=== PATIENT | male | born 2000 | race African-American/Black ===

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

== ENCOUNTER 2020-05-17 12:29 | Emergency (ER) | payer MEDICAID ==
[2020-05-17 12:48] VITALS: BP 144/90
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
== END 2020-05-17 13:04 | disposition home or self-care (01) ==
LOC: ED 12:29
DX: R46.89 Other symptoms and signs involving appearance and behavior (principal); E10.9 Type 1 diabetes mellitus without complications
CPT/HCPCS: 99281; 99282

== ENCOUNTER 2021-11-17 13:19 | Outpatient (CLI) | payer MEDICAID | END 2021-11-17 13:20 | disposition EMS.NT | LOC: EMS 13:19 | DX: S91.112A Laceration without foreign body of left great toe without damage to nail, initial encounter (principal); W25.XXXA Contact with sharp glass, initial encounter; Y92.009 Unspecified place in unspecified non-institutional (private) residence as the place of occurrence of the external cause ==

== ENCOUNTER 2021-11-17 14:05 | Emergency (ER) | payer MEDICAID ==
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
[2021-11-17] MEDS ORDERED: ACETAMINOPHEN 325 MG TABLET PO STA (16:08)
[2021-11-17 16:50] VITALS: BP 137/89
== END 2021-11-17 16:45 | disposition home or self-care (01) ==
LOC: ED 14:05
DX: S91.112A Laceration without foreign body of left great toe without damage to nail, initial encounter (principal); S91.115A Laceration without foreign body of left lesser toe(s) without damage to nail, initial encounter; W25.XXXA Contact with sharp glass, initial encounter; Y93.89 Activity, other specified
CPT/HCPCS: 12001; 99282; A9270

== ENCOUNTER 2021-11-26 07:29 | Emergency (ER) | payer MEDICAID ==
--- NOTE | 2021-11-26 07:33 | ED Physician Documentation ---
PD HPI WOUND RECHECK - Stated complaint Stated Complaint: SUTURE REMOVAL - Histroy obtained from History obtained from: Patient - History of Present Illness Location: Right Foot Timing - onset: How many days ago (9) Associated symptoms: Pain. No: Fever, Redness, Swelling, Drainage Similar symptoms before: Diagnosis (laceration) Recently seen: Emergency Dept - Additional information Additional information: 21-year-old type I diabetic male has lacerated 2 toes on his right foot and had sutures placed 9 days ago. He denies any specific problem associated with the laceration there is no swelling or drainage he does have pain and he is using crutches to walk. He states that he has some numbness to the big toe that was present at the time of the laceration and it is only starting to regain some feeling. He states this is the area that is the most bothered. Review of Systems Constitutional: denies: Fever Respiratory: denies: Cough GI: denies: Vomiting Skin: reports: Laceration (s) Musculoskeletal: reports: Extremity pain, Pain with weight bearing. denies: Neck pain, Back pain PD PAST MEDICAL HISTORY - Past Medical History Cardiovascular: None Respiratory: Asthma Endocrine/Autoimmune: Type 1 diabetes GI: None : None HEENT: None Psych: None Musculoskeletal: None Derm: None - Past Surgical History Past Surgical History: No - Present Medications Home Medications: Ambulatory Orders Medication Instructions Recorded Confirmed Insulin Glargine [Lantus] 25 units SUBQ QPM 08/18/16 11/26/21 Insulin Lispro [Humalog] 25 units SUBQ QPM 08/18/16 11/26/21 - Allergies Allergies/Adverse Reactions: Allergies Allergy/AdvReac Type Severity Reaction Status Date / Time prednisone Allergy Respiratory Verified 11/26/21 07:33 - Social History Does the pt smoke?: No Smoking Status: Never smoker Does the pt drink ETOH?: Yes Does the pt have substance abuse?: No - Immunizations Immunizations are current?: Yes - POLST Patient has POLST: No PD ED PE NORMAL - Vitals Vital signs reviewed: Yes (Tachycardic and hypertensive) - General General: Alert and oriented X 3, No acute distress, Well developed/nourished - HEENT HEENT: Atraumatic, PERRL, EOMI - Respiratory Respiratory: No respiratory distress - Derm Derm: Normal color, Warm and dry, No rash - Extremities Extremities: Other (To the plantar surface of the right foot the right great toe and second toe have sutures placed. There is no surrounding erythema or swelling the area is sensitive.) - Neuro Neuro: Alert and oriented X 3, stamping operator 2-12 intact, No motor deficit, No sensory deficit, Normal speech Eye Opening: Spontaneous Motor: Obeys Commands Verbal: Oriented GCS Score: 15 - Psych Psych: Normal mood, Normal affect Results - Vitals Vitals: Vital Signs - 24 hr 11/26/21 07:33 Temperature 36.4 C L Heart Rate 108 H Respiratory 99 H Rate Blood Pressure 135/80 H Oxygen O2 Source Room air - Labs Labs: Laboratory Tests 11/26/21 07:56 POC Whole Bld Glucose 233 H Procedures - Suture/staple Removal (location) right foot Suture/staple removal: # sutures (9), Other (significant pain with manipulation of sutures caused the patient to become diaphoretic.) PD MEDICAL DECISION MAKING - ED course Complexity details: considered differential, d/w patient, d/w family ED course: 21-year-old type I diabetic male presents emerged part for suture removal. He presents to the emergency department on crutches and is still having some difficulty with bearing weight. Sutures removed with significant mount of pain for removal of each suture. I found this odd and in that the patient even developed diaphoresis associated with this. I am concerned that he may be developing a complex regional pain syndrome. I discussed this finding with the patient and are hoping that with removal of sutures inflammation resolves. I will refer the patient to primary care. He does not currently have a primaryBecause of the diaphoresis we did check the blood glucose it was over 200. Departure - Departure Disposition: 01 Home, Self Care Clinical Impression: Encounter for removal of sutures Condition: Stable Instructions: ED Sutr Check No Infec Follow-Up: [facility] [Provider Group] Forms: Activity restrictions
[2021-11-26 08:30] VITALS: BP 130/80
== END 2021-11-26 08:31 | disposition home or self-care (01) ==
LOC: ED 07:29
DX: S91.114D Laceration without foreign body of right lesser toe(s) without damage to nail, subsequent encounter (principal); X58.XXXD Exposure to other specified factors, subsequent encounter; E10.9 Type 1 diabetes mellitus without complications; Z79.4 Long term (current) use of insulin
CPT/HCPCS: 99281

== ENCOUNTER 2022-01-20 12:44 | Outpatient (CLI) | payer MEDICAID | END 2022-01-20 12:45 | disposition critical access hospital (66) | LOC: EMS 12:44 | DX: E10.65 Type 1 diabetes mellitus with hyperglycemia (principal) | CPT/HCPCS: A0425; A0427; A0999 ==

== ENCOUNTER 2022-01-20 13:14 | Inpatient (IN) | payer MEDICAID ==
[2022-01-20] MEDS ORDERED: SODIUM CHLORIDE 0.9% 1,000 ML IV STA (13:16)
[2022-01-20] MEDS ORDERED: ONDANSETRON 4 MG/2 ML VIAL IVP STA (13:23)
--- NOTE | 2022-01-20 13:25 | ED Physician Documentation ---
History of Present Illness - Stated complaint Stated Complaint: DIABETIC ISSUE - Additonal information Additional information: 21-year-old male who is a type I diabetic comes to the emergency department for concerns of hyperglycemia. Recently he has been in between primary care doctors and has been unable to get a refill of his Lantus so he has not taken it for a few weeks. In addition to this he has been rationing his Humalog. Typically he would take 21 units of Lantus every morning and 15 units of Humalog with carb counting at lunchtime as well as insulin sliding scale. 9 no fever some nausea but no vomiting. No diarrhea. No chest pain and shortness of air. For EMS his blood glucose was 498. Review of Systems Constitutional: denies: Fever, Chills Eyes: reports: Reviewed and negative Nose: reports: Reviewed and negative Throat: reports: Reviewed and negative Cardiac: reports: Reviewed and negative Respiratory: reports: Reviewed and negative GI: reports: Nausea. denies: Vomiting, Diarrhea : reports: Reviewed and negative Skin: reports: Reviewed and negative Musculoskeletal: reports: Reviewed and negative PD PAST MEDICAL HISTORY - Past Medical History Cardiovascular: None Respiratory: Asthma Endocrine/Autoimmune: Type 1 diabetes GI: None : None HEENT: None Psych: None Musculoskeletal: None Derm: None - Past Surgical History Past Surgical History: No - Present Medications Home Medications: Ambulatory Orders Medication Instructions Recorded Confirmed Insulin Glargine [Lantus] 25 units SUBQ QPM 08/18/16 11/26/21 Insulin Lispro [Humalog] 25 units SUBQ QPM 08/18/16 11/26/21 Insulin Glargine [Lantus Solostar] 21 unit SQ DAILY #1 pe 01/20/22 Insulin Lispro [Humalog Kwikpen 15 unit SUBQ BID #1 each 01/20/22 U-100] - Allergies Allergies/Adverse Reactions: Allergies Allergy/AdvReac Type Severity Reaction Status Date / Time prednisone Allergy Respiratory Verified 11/26/21 07:33 - Social History Does the pt smoke?: No Smoking Status: Never smoker Does the pt drink ETOH?: Yes Does the pt have substance abuse?: No - Immunizations Immunizations are current?: Yes - POLST Patient has POLST: No PD ED PE NORMAL - General General: Alert and oriented X 3, No acute distress, Well developed/nourished - HEENT HEENT: Atraumatic, PERRL, EOMI, Moist mucous membranes - Neck Neck: Supple, no meningeal sign, No adenopathy - Cardiac Cardiac: No murmur, No gallop - Respiratory Respiratory: No respiratory distress, Clear bilaterally - Abdomen Abdomen: Normal bowel sounds, Soft, Non tender - Back Back: No CVA TTP, No spinal TTP - Derm Derm: Normal color, Warm and dry, No rash - Extremities Extremities: No deformity, No tenderness to palpate, Normal ROM s pain - Neuro Neuro: Alert and oriented X 3, appeals reviewer veteran 2-12 intact Eye Opening: Spontaneous Motor: Obeys Commands Verbal: Oriented GCS Score: 15 Results - Vitals Vitals: Vital Signs - 24 hr 01/20/22 01/20/22 01/20/22 13:10 13:26 14:36 Temperature 37.1 C Heart Rate 110 H 114 H 122 H Respiratory 19 28 H 26 H Rate Blood Pressure 115/60 116/63 134/81 H O2 Saturation 100 100 100 01/20/22 01/20/22 01/20/22 15:10 17:29 18:19 Temperature Heart Rate 111 H 109 H 105 H Respiratory 30 H 12 23 Rate Blood Pressure 120/60 123/87 H 114/74 O2 Saturation 100 96 100 01/20/22 01/20/22 01/20/22 18:41 19:15 19:38 Temperature Heart Rate 107 H 117 H 114 H Respiratory 23 16 25 H Rate Blood Pressure 110/76 111/67 107/77 O2 Saturation 100 100 100 01/20/22 21:51 Temperature Heart Rate 100 Respiratory 23 Rate Blood Pressure 100/72 O2 Saturation 100 Oxygen O2 Source Room air - Labs Labs: Laboratory Tests 01/20/22 01/20/22 01/20/22 13:37 13:37 14:18 WBC 9.2 RBC 5.07 Hgb 14.9 Hct 47.1 MCV 92.9 MCH 29.4 MCHC 31.6 L RDW 13.2 Plt Count 335 MPV 10.0 Neut # (Auto) 7.1 H Lymph # (Auto) 1.6 [place] # (Auto) 0.3 Eos # (Auto) 0.1 Baso # (Auto) 0.1 Absolute Nucleated RBC 0.00 Nucleated RBC % 0.0 VBG pH VBG pCO2 VBG pO2 VBG HCO3 VBG Total CO2 VBG O2 Saturation VBG Base Excess Sodium 137 Potassium 4.9 Chloride 99 L Carbon Dioxide 8 L* Anion Gap 30.0 H BUN 23 H Creatinine 1.5 H Estimated GFR (MDRD) 71 L Glucose 593 H* Lactic Acid 2.1 Calcium 9.3 Total Bilirubin 2.1 H AST 25 ALT 27 Alkaline Phosphatase 106 Total Protein 7.6 Albumin 4.2 Globulin 3.4 Albumin/Globulin Ratio 1.2 Lipase 20 L Urine Color Urine Clarity Urine pH Ur Specific [employer] Urine Protein Urine Glucose (UA) Urine Ketones Urine Occult Blood Urine Nitrite Urine Bilirubin Urine Urobilinogen Ur Leukocyte Esterase Ur Microscopic Review Urine Culture Comments Serum Ketones LARGE H SARS-CoV-2 (PCR) 01/20/22 01/20/22 01/20/22 14:18 14:28 15:15 WBC RBC Hgb Hct MCV MCH MCHC RDW Plt Count MPV Neut # (Auto) Lymph # (Auto) [place] # (Auto) Eos # (Auto) Baso # (Auto) Absolute Nucleated RBC Nucleated RBC % VBG pH 7.107 L VBG pCO2 19.0 L VBG pO2 71.1 H VBG HCO3 5.9 L VBG Total CO2 6.4 L VBG O2 Saturation 90.1 H VBG Base Excess -21.7 L Sodium Potassium Chloride Carbon Dioxide Anion Gap BUN Creatinine Estimated GFR (MDRD) Glucose Lactic Acid Calcium Total Bilirubin AST ALT Alkaline Phosphatase Total Protein Albumin Globulin Albumin/Globulin Ratio Lipase Urine Color YELLOW Urine Clarity CLEAR Urine pH 5.5 Ur Specific [employer] 1.020 Urine Protein NEGATIVE Urine Glucose (UA) >=1000 H Urine Ketones >=80 H Urine Occult Blood NEGATIVE Urine Nitrite NEGATIVE Urine Bilirubin NEGATIVE Urine Urobilinogen 0.2 (NORMAL) Ur Leukocyte Esterase NEGATIVE Ur Microscopic Review NOT INDICATED Urine Culture Comments NOT INDICATED Serum Ketones SARS-CoV-2 (PCR) NOT DETECTED 01/20/22 01/20/22 18:11 20:48 WBC RBC Hgb Hct MCV MCH MCHC RDW Plt Count MPV Neut # (Auto) Lymph # (Auto) [place] # (Auto) Eos # (Auto) Baso # (Auto) Absolute Nucleated RBC Nucleated RBC % VBG pH VBG pCO2 VBG pO2 VBG HCO3 VBG Total CO2 VBG O2 Saturation VBG Base Excess Sodium 142 136 Potassium 4.5 4.2 Chloride 109 106 Carbon Dioxide 11 L* 13 L Anion Gap 22.0 H 17.0 H BUN 19 15 Creatinine 1.2 1.1 Estimated GFR (MDRD) 92 101 Glucose 211 H 340 H Lactic Acid Calcium 8.6 8.3 L Total Bilirubin AST ALT Alkaline Phosphatase Total Protein Albumin Globulin Albumin/Globulin Ratio Lipase Urine Color Urine Clarity Urine pH Ur Specific [employer] Urine Protein Urine Glucose (UA) Urine Ketones Urine Occult Blood Urine Nitrite Urine Bilirubin Urine Urobilinogen Ur Leukocyte Esterase Ur Microscopic Review Urine Culture Comments Serum Ketones SARS-CoV-2 (PCR) PD MEDICAL DECISION MAKING - ED course Complexity details: reviewed results, re-evaluated patient, d/w patient ED course: 21-year-old male who is a type I diabetic presents the emergency department for evaluation of nausea and hyperglycemia. He has not taken his Lantus for about 3 weeks and has been rationing his Humalog as he is in between primary care providers. On presentation he has a blood glucose greater than 500. His CO2 is 8 and large ketones in the blood as well as an anion gap of 30. he is also quite acidotic with a base deficit of -21 and a pH 7.1. This is consistent with DKA. He is tachycardic but normotensive. He was initially started on crystalloids pending labs. Seeing that his potassium is normal we have instituted insulin gtt. I have spoken with Dr. Lagos Who will write admission orders for the patient as soon as an ICU bed is available. It may be a number of hours therefore he will remain in the emergency department. 1800: Notified by the daytime hospitalist that the anticipated ICU bed will no longer be available. The hospitalist has agreed to write a consult note but in order to further manage his care. I was notified that blood glucose now 197. D51/2 NS infusion ordered. Patient has notified myself and the hospitalist because of family care issues he is not likely to remain in the hospital past 9 PM. Repeat BMP is pending. Assuming his gap closes we may be able to discharge him, though it may be AGAINST MEDICAL ADVICE. 2015: On repeat evaluation the patient remains a Glasc[place] of 15. He continues to have mild tachycardia. A repeat BMP completed around the 1600-hour showed that he still had an elevated gap which had not closed. I discussed with the patient the lability of his blood glucose and the fact that he remains in DKA. He is adamant that he will be discharged home as he needs to care for his mom. We discussed that the risk of leaving before the gap is fully closed and without incomplete treatment of DKA could risk he understands this. He is requesting that we give him a dose of Lantus tonight and I will send a prescription for his medications to the pharmacy. He will continue to try and obtain a primary care provider. Emergent return precautions were discussed. 2030: I am notified that the patient now no longer wants to leave AMA. I have asked nursing staff to resume his insulin and dextrose infusion. Repeat BMP is pending. We will request every 30 minutes blood glucose if the nursing staff can accommodate until stabilized. I have discussed with Dr. Henry or hospitalist. If an ICU bed opens up overnight he will be admitted there. 2229. Blood glucose 261. Remain on insulin gtt, but dextrose infusion stopped. Most recent BMP contiues to show an elevated anion gap, though improving. still awaiting an ICU bed. Pt will be signed out to my night time colleague Dr. Burnham to f/u on any overnight event and labs. Departure - Departure Clinical Impression: DKA, type 1 Qualifiers: Diabetes mellitus complication detail: without coma Qualified Code(s): E10.10 - Type 1 diabetes mellitus with ketoacidosis without coma Condition: Stable Record reviewed to determine appropriate education?: Yes Prescriptions: Insulin Lispro [Humalog Kwikpen U-100] 15 unit SUBQ BID #1 each Insulin Glargine [Lantus Solostar] 21 unit SQ DAILY #1 pe
[2022-01-20 13:43] LABS: BASOPHILS # (AUTO) 0.1 10^3/uL (0.0-0.1); BASOPHILS % (AUTO) 0.7 %; EOSINOPHILS # (AUTO) 0.1 10^3/uL (0.0-0.7); EOSINOPHILS % (AUTO) 0.5 %; HCT - HEMATOCRIT 47.1 % (42.0-52.0); HGB - HEMOGLOBIN 14.9 g/dL (14.0-18.0); LYMPHOCYTES # (AUTO) 1.6 10^3/uL (1.5-3.5); LYMPHOCYTES % (AUTO) 17.3 %; MEAN CORPUSCULAR HEMOGLOBIN 29.4 pg (27.0-31.0); MEAN CORPUSCULAR HGB CONC 31.6 g/dL (32.0-36.0); MEAN CORPUSCULAR VOLUME 92.9 fL (80.0-94.0); MONOCYTES # (AUTO) 0.3 10^3/uL (0.0-1.0); MONOCYTES % (AUTO) 3.7 %; NEUTROPHILS # (AUTO) 7.1 10^3/uL (1.5-6.6); NEUTROPHILS % (AUTO) 77.6 %; PLT - PLATELET COUNT 335 10^3/uL (130-450); RED BLOOD COUNT 5.07 10^6/uL (4.70-6.10); RED CELL DISTRIBUTION WIDTH 13.2 % (12.0-15.0); WHITE BLOOD COUNT 9.2 x10^3/uL (4.8-10.8)
[2022-01-20 13:49] LABS: KETONES, SERUM (ACETEST) LARGE (NEGATIVE)
[2022-01-20 13:56] LABS: ALBUMIN 4.2 g/dL (3.2-5.5); ALBUMIN/GLOBULIN RATIO 1.2 (1.0-2.2); ALKALINE PHOSPHATASE 106 IU/L (42-121); ALT ALANINE AMINOTRANSFERASE 27 IU/L (10-60); AST ASPARTATE AMINOTRANSFERASE 25 IU/L (10-42); BILIRUBIN,TOTAL 2.1 mg/dL (0.2-1.0); BUN - BLOOD UREA NITROGEN 23 mg/dL (6-20); CALCIUM 9.3 mg/dL (8.5-10.3); CHLORIDE 99 mmol/L (101-111); CREATININE 1.5 mg/dL (0.6-1.2); GFR - MDRD 71 (>89); LIPASE 20 U/L (22-51); POTASSIUM 4.9 mmol/L (3.5-5.0); SODIUM 137 mmol/L (135-145); TOTAL PROTEIN 7.6 g/dL (6.7-8.2)
[2022-01-20 13:57] LABS: CARBON DIOXIDE - CO2 8 mmol/L (21-32); GLUCOSE 593 mg/dL (70-100)
[2022-01-20] MEDS ORDERED: INSULIN REGULAR HUMAN 100 UNIT/1 ML 10 ML MDV IVP STA ×2 (14:03→14:37)
[2022-01-20] MEDS ORDERED: INSULIN REGULAR HUMAN 100 UNIT in SODIUM CHLORIDE 0.9% 100ML 99 ML IV STA (14:03)
[2022-01-20] MEDS: SODIUM CHLORIDE 0.9% 1,000 ML IV SCH ×3 (14:15→17:12)
[2022-01-20 14:28] LABS: VBG BASE EXCESS -21.7 mmol/L (-2 - +2); VBG HCO3 5.9 mmol/L (23-28); VBG OXYGEN SATURATION 90.1 % (60-80); VBG PH 7.107 (7.31-7.41); VBG PO2 71.1 mmHg (25-47); VBG TOTAL CO2 6.4 mmol/L (24-29)
[2022-01-20 14:46] LABS: BILIRUBIN,URINE NEGATIVE (NEGATIVE); GLUCOSE, URINE (UA) >=1000 mg/dL (NEGATIVE); KETONES,URINE (UA) >=80 mg/dL (NEGATIVE); LEUKOCYTE ESTERASE, URINE NEGATIVE (NEGATIVE); NITRITE,URINE NEGATIVE (NEGATIVE); OCCULT BLOOD,URINE NEGATIVE (NEGATIVE); PH,URINE 5.5 PH (5.0-7.5); PROTEIN,URINE NEGATIVE (NEGATIVE); UROBILINOGEN,URINE 0.2 (NORMAL) E.U./dL (NORMAL)
[2022-01-20 14:51] LABS: CLARITY,URINE CLEAR (CLEAR)
[2022-01-20 18:33] LABS: CALCIUM 8.6 mg/dL (8.5-10.3); CREATININE 1.2 mg/dL (0.6-1.2); POTASSIUM 4.5 mmol/L (3.5-5.0)
[2022-01-20] MEDS ORDERED: DEXTROSE 5%-0.9% NACL 1,000 ML IV STA (18:40)
--- NOTE | 2022-01-20 19:21 | CONSULTATION NOTE ---
History - Past Medical History Cardiovascular: reports: None Respiratory: reports: Asthma Endocrine/Autoimmune: reports: Type 1 diabetes GI: reports: None : reports: None HEENT: reports: None Psych: reports: None Musculoskeletal: reports: None Derm: reports: None MRSA Hx?: No - POLST Patient has POLST: No Meds/Allgy - Home Medications Home Medications: Ambulatory Orders Medication Instructions Recorded Confirmed Insulin Glargine [Lantus] 25 units SUBQ QPM 08/18/16 11/26/21 Insulin Lispro [Humalog] 25 units SUBQ QPM 08/18/16 11/26/21 - Allergies Allergies/Adverse Reactions: Allergies Allergy/AdvReac Type Severity Reaction Status Date / Time prednisone Allergy Respiratory Verified 11/26/21 07:33 Exam - Vital Signs Vital Signs: Vital Signs x48h Temp Pulse Resp BP Pulse Ox 01/20/22 19:15 117 H 16 111/67 100 01/20/22 18:41 107 H 23 110/76 100 01/20/22 18:19 105 H 23 114/74 100 01/20/22 17:29 109 H 12 123/87 H 96 01/20/22 15:10 111 H 30 H 120/60 100 01/20/22 14:36 122 H 26 H 134/81 H 100 01/20/22 13:26 114 H 28 H 116/63 100 01/20/22 13:10 37.1 C 110 H 19 115/60 100 Conclusion/Plan - Lab Results Fish Bones: 01/20/22 13:37 01/20/22 18:11
[2022-01-20] MEDS ORDERED: INSULIN GLARGINE 300 UNIT/3 ML PEN SUBQ STA (20:20)
[2022-01-20 21:12] LABS: CALCIUM 8.3 mg/dL (8.5-10.3); CREATININE 1.1 mg/dL (0.6-1.2); POTASSIUM 4.2 mmol/L (3.5-5.0)
[2022-01-21 00:08] LABS: CALCIUM 8.8 mg/dL (8.5-10.3); POTASSIUM 4.1 mmol/L (3.5-5.0)
[2022-01-21] MEDS ORDERED: ONDANSETRON 4 MG/2 ML VIAL IVP PRN (00:26)
[2022-01-21] MEDS ORDERED: SODIUM CHLORIDE FLUSH 0.9% 10 ML SYRINGE IVP PRN (00:26)
[2022-01-21] MEDS ORDERED: ACETAMINOPHEN 325 MG TABLET PO PRN (00:26)
[2022-01-21] MEDS ORDERED: PROCHLORPERAZINE 10 MG/2 ML VIAL IVP PRN (00:26)
--- NOTE | 2022-01-21 00:33 | HISTORY & PHYSICAL EXAMINATION ---
Chief Complaint - Chief Complaint Chief Complaint: Hyperglycemia from rationing Insulin History of Present Illness - Admitted From Admitted From:: ED - History Obtained From History obtained from: ED provider and the patient - History of Present Illness HPI Comment/Other: This is a 21-year-old black male with a history of type 1 diabetes. He is between providers and started rationing his insulin to last him before having his appointment with a new PCP, who could reorder his insulin. His glucose checks have become hyperglycemic. He started to get weakness and nausea and called an ambulance. His last glucose was 498. In the ED he was found to have DKA with Large serum ketones, elevated anion gap and serum pH of 7.1. He was started on DKA protocol in the emergency room department, since we had no open ICU beds. The patient is being admitted to the ICU for DKA management. History - Past Medical History Cardiovascular: reports: None Respiratory: reports: Asthma Endocrine/Autoimmune: reports: Type 1 diabetes (2 prior episodes of DKA, none in the past 2 years.) GI: reports: None : reports: None HEENT: reports: None Psych: reports: None Musculoskeletal: reports: None Derm: reports: None MRSA Hx?: No - Family & Social History Family History: Mother: Alive and Well Family History Comment/Other: Diabetes does not run in the family. No illnesses run in the family. He has an older brother who is deployed overseas currently. 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 He smokes up to 1/2 pack/day. He drinks up to 2 beers occasionally, not daily. - Substance History Use: Uses substance without health or social issues: NONE - POLST Patient has POLST: No Meds/Allgy - Home Medications Home Medications: Ambulatory Orders Medication Instructions Recorded Confirmed Insulin Glargine [Lantus] 25 units SUBQ QPM 08/18/16 11/26/21 Insulin Lispro [Humalog] 25 units SUBQ QPM 08/18/16 11/26/21 Insulin Glargine [Lantus Solostar] 21 unit SQ DAILY #1 pe 01/20/22 Insulin Lispro [Humalog Kwikpen 15 unit SUBQ BID #1 each 01/20/22 U-100] - Allergies Allergies/Adverse Reactions: Allergies Allergy/AdvReac Type Severity Reaction Status Date / Time prednisone Allergy Respiratory Verified 11/26/21 07:33 Review of Systems - Constitutional Constitutional: reports: Poor appetite - Gastrointestinal Gastrointestinal: reports: Nausea, Vomiting - All Other Systems All Other Systems: reports: Reviewed and negative Exam - Vital Signs Vital Signs: Vital Signs x48h Pulse Resp BP Pulse Ox 01/21/22 00:10 98 19 120/84 H 100 01/20/22 23:00 97 15 117/77 100 01/20/22 21:51 100 23 100/72 100 01/20/22 19:38 114 H 25 H 107/77 100 01/20/22 19:15 117 H 16 111/67 100 01/20/22 18:41 107 H 23 110/76 100 01/20/22 18:19 105 H 23 114/74 100 01/20/22 17:29 109 H 12 123/87 H 96 - Physical Exam General Appearance: positive: Mild distress Eyes Bilateral: positive: Normal inspection, EOMI ENT: positive: Dry mucous membranes Neck: positive: Nml inspection, No JVD Respiratory: positive: No respiratory distress, Breath sounds nml Cardiovascular: positive: Regular rate & rhythm, No murmur Abdomen: positive: Non-tender, No distention (diminished bowel sounds) Skin: positive: Warm, Dry Extremities: positive: Non-tender, No pedal edema Neurologic/Psychiatric: positive: Oriented x3 (non-focal) Conclusion/Plan - Problem List (1) DKA, type 1 Conclusion/Plan: The etiology appears to be (sadly) from having to ration his insulin doses to last him until he has a PCP appointment who can represcribe him insulin. Will place him on a DKA protocol in the ICU, on an insulin drip, with close electrolyte and glucose monitoring, on IV fluids containing D5 (since his serum glucoses have reached under 200), follow serum ketones. Continue the IV insulin drip until he clears his serum ketones completely; They have decreased from large serum ketones down to small serum ketones. Replace electrolytes (like K and PO4) as the serum glucose decreases Give iv anti-emetics if needed. Advance him to a diabetic diet, as tolerated. Check A1c with morning labs Will order nutrition consult for diabetic teaching. Will request social work to assist in getting him an [facility] appointment with the PCP. Qualifiers: Diabetes mellitus complication detail: without coma Qualified Code(s): E10.10 - Type 1 diabetes mellitus with ketoacidosis without coma - Lab Results Fish Bones: 01/21/22 04:10 01/21/22 04:10 - Diagnostic Imaging Results Diagnostic Imaging Results: positive: Final report reviewed - Other Other Results/Comments: DVT prophylaxis: SCDs Ulcer prophylaxis: Oral Pepcid Attestation: The patient is expected to be discharged or transferred to another facility within 96 hours: Yes
[2022-01-21] MEDS ORDERED: INSULIN REGULAR HUMAN 100 UNIT in SODIUM CHLORIDE 0.9% 100ML 99 ML IV SCH (01:00)
[2022-01-21] MEDS ORDERED: D5NS W/20 MEQ KCL 1,000 ML IV SCH (01:00)
[2022-01-21 01:09] LABS: KETONES, SERUM (ACETEST) MODERATE (NEGATIVE); VBG BASE EXCESS -11.7 mmol/L (-2 - +2); VBG HCO3 12.3 mmol/L (23-28); VBG OXYGEN SATURATION 84.3 % (60-80); VBG PCO2 24.3 mmHg (41-51); VBG PH 7.323 (7.31-7.41); VBG TOTAL CO2 13.1 mmol/L (24-29)
[2022-01-21 01:11] LABS: BUN - BLOOD UREA NITROGEN 13 mg/dL (6-20); CALCIUM 8.8 mg/dL (8.5-10.3); CARBON DIOXIDE - CO2 15 mmol/L (21-32); CHLORIDE 105 mmol/L (101-111); CREATININE 1.1 mg/dL (0.6-1.2); GFR - MDRD 101 (>89); GLUCOSE 159 mg/dL (70-100); MAGNESIUM 1.9 mg/dL (1.7-2.8); POTASSIUM 3.9 mmol/L (3.5-5.0); SODIUM 135 mmol/L (135-145)
--- NOTE | 2022-01-21 01:27 | ED Physician Documentation ---
ED Addendum - Addendum Addendum: Pt signed out to be by Cierra Estes NP. Patient awaiting admission for DKA. ICU bed has opened up. Hospitalist made aware.Patient is agreeable to admission.He has remained on insulin drip and gap is closing. Departure - Departure Disposition: 66 [facility] DC/Xfer Clinical Impression: DKA, type 1 Qualifiers: Diabetes mellitus complication detail: without coma Qualified Code(s): E10.10 - Type 1 diabetes mellitus with ketoacidosis without coma Condition: Stable Discharge Date/Time: 01/21/22 02:44
[2022-01-21 02:01] LABS: KETONES, SERUM (ACETEST) SMALL (NEGATIVE)
[2022-01-21 02:05] LABS: BUN - BLOOD UREA NITROGEN 13 mg/dL (6-20); CALCIUM 9.1 mg/dL (8.5-10.3); CARBON DIOXIDE - CO2 17 mmol/L (21-32); CHLORIDE 105 mmol/L (101-111); GFR - MDRD 113 (>89); GLUCOSE 130 mg/dL (70-100); POTASSIUM 3.9 mmol/L (3.5-5.0); SODIUM 136 mmol/L (135-145)
[2022-01-21 04:28] LABS: BASOPHILS # (AUTO) 0.1 10^3/uL (0.0-0.1); BASOPHILS % (AUTO) 0.6 %; EOSINOPHILS # (AUTO) 0.3 10^3/uL (0.0-0.7); EOSINOPHILS % (AUTO) 2.4 %; HCT - HEMATOCRIT 38.3 % (42.0-52.0); HGB - HEMOGLOBIN 12.7 g/dL (14.0-18.0); LYMPHOCYTES % (AUTO) 29.4 %; MEAN CORPUSCULAR HEMOGLOBIN 28.9 pg (27.0-31.0); MEAN CORPUSCULAR HGB CONC 33.2 g/dL (32.0-36.0); MEAN PLATELET VOLUME 9.3 fL (7.4-11.4); MONOCYTES # (AUTO) 0.6 10^3/uL (0.0-1.0); MONOCYTES % (AUTO) 5.8 %; NEUTROPHILS # (AUTO) 6.3 10^3/uL (1.5-6.6); NEUTROPHILS % (AUTO) 61.6 %; PLT - PLATELET COUNT 296 10^3/uL (130-450); RED CELL DISTRIBUTION WIDTH 13.5 % (12.0-15.0); WHITE BLOOD COUNT 10.2 x10^3/uL (4.8-10.8)
[2022-01-21 04:33] LABS: KETONES, SERUM (ACETEST) SMALL (NEGATIVE)
[2022-01-21 04:38] LABS: BUN - BLOOD UREA NITROGEN 12 mg/dL (6-20); CALCIUM 8.5 mg/dL (8.5-10.3); CARBON DIOXIDE - CO2 16 mmol/L (21-32); CHLORIDE 107 mmol/L (101-111); CREATININE 0.9 mg/dL (0.6-1.2); GFR - MDRD 128 (>89); GLUCOSE 161 mg/dL (70-100); POTASSIUM 2.7 mmol/L (3.5-5.0); SODIUM 133 mmol/L (135-145)
[2022-01-21] MEDS: POTASSIUM CHLOR 10 MEQ/100 ML 10 MEQ/100 ML BAG IV SCH ×2 (06:10→07:45)
[2022-01-21] MEDS: SODIUM CHLORIDE FLUSH 0.9% 10 ML SYRINGE IVP SCH ×2 (06:13→08:20)
[2022-01-21] MEDS ORDERED: POTASSIUM CHLORIDE 20 MEQ TABLET PO STA (07:25)
[2022-01-21] MEDS ORDERED: INSULIN GLARGINE 300 UNIT/3 ML PEN SUBQ SCH (08:30)
[2022-01-21] MEDS: NEUTRA-PHOS 250 MG TABLET PO SCH ×2 (08:56→11:08)
[2022-01-21] MEDS ORDERED: FAMOTIDINE 20 MG TABLET PO SCH (09:00)
[2022-01-21] MEDS ORDERED: SODIUM CHLORIDE 0.9% 1,000 ML IV SCH (10:00)
--- NOTE | 2022-01-21 10:05 | DISCHARGE SUMMARY ---
Discharge Summary Admit Date: 01/21/22 Discharge Date: 01/21/22 Discharging Provider: Dhiraj Pratherhosatish Code Status: Attempt Resuscitation Condition at Discharge: Stable Discharge Disposition: 01 Home, Self Care - DIAGNOSES Admission Diagnoses: DKA Type 1 Discharge Diagnoses with Status of Each Condition: DKA Type 1: Improved/ Resolved - HPI History of Present Illness: This is a 21-year-old black male with a history of type 1 diabetes. He is between providers and started rationing his insulin to last him before having his appointment with a new PCP, who could reorder his insulin. His glucose checks have become hyperglycemic. He started to get weakness and nausea and called an ambulance. His last glucose was 498. In the ED he was found to have DKA with Large serum ketones, elevated anion gap and serum pH of 7.1. He was started on DKA protocol in the emergency room department, since we had no open ICU beds. The patient is being admitted to the ICU for DKA management. - HOSPITAL COURSE Hospital Course: 21-year-old male with type 1 diabetes who was admitted on 01/21/22 with DKA. He is currently between providers and was running out of his insulin so he started rationing it. At presentation he had a blood glucose of 593, bicarbonate 8 anion gap 30. Crea tinine 1.5 BUN 23. He was admitted to the ICU and placed on an insulin drip per DKA protocol. Over about 18 hours of treatment patient's clinical status improved, anion gap was closed and blood sugar was improved. Consequently the patient was discharged in stable condition. His Lantus and Humalog where refilled and he was given 3 extra refills. This has been sent to the pharmacy. He is to follow-up with his primary care physician. environmental services coordinator is working on getting him a referral for primary care physician. He was discharged in stable condition. - ALLERGIES Allergies/Adverse Reactions: Allergies Allergy/AdvReac Type Severity Reaction Status Date / Time prednisone Allergy Respiratory Verified 11/26/21 07:33 - MEDICATIONS Home Medications: Ambulatory Orders Medication Instructions Recorded Confirmed Insulin Glargine [Lantus] 25 units SUBQ QPM 08/18/16 11/26/21 Insulin Lispro [Humalog] 25 units SUBQ QPM 08/18/16 11/26/21 Insulin Glargine [Lantus Solostar] 21 unit SQ DAILY #1 pe 01/20/22 Insulin Lispro [Humalog Kwikpen 15 unit SUBQ BID #1 each 01/20/22 U-100] - PHYSICAL EXAM AT DISCHARGE General Appearance: positive: No acute distress, Alert Eyes Bilateral: positive: PERRL, EOMI ENT: positive: No signs of dehydration Neck: positive: No JVD, Trachea midline Respiratory: positive: Chest non-tender, No respiratory distress, Breath sounds nml. negative: Wheezes, Rales, Rhonchi Cardiovascular: positive: Regular rate & rhythm, No murmur Abdomen: positive: Non-tender, No organomegaly, Nml bowel sounds, No distention. negative: Guarding, Rebound Back: positive: Nml inspection Skin: positive: Color nml, No rash, Warm, Dry Extremities: positive: Non-tender, No pedal edema Neurologic/Psychiatric: positive: Oriented x3, Mood/affect nml - LABS Result Diagrams: 01/21/22 04:10 01/21/22 11:08 - TIME SPENT Time Spent in Discharge (Minutes): 20
--- NOTE | 2022-01-21 10:10 | Discharge Plan ---
Discharge Plan Problem Reviewed?: Yes Disposition: Home, Self Care Condition: Stable Prescriptions: Insulin Lispro [Humalog Kwikpen U-100] 15 unit SUBQ BID #1 each Insulin Glargine [Lantus Solostar] 21 unit SQ DAILY #1 pe Diet: Diabetic Activity Restrictions: Activity as Tolerated Shower Restrictions: No Driving Restrictions: No Weight Bearing: Full Weight Health Concerns: 21-year-old male with type 1 diabetes who was admitted on 01/21/22 with DKA. He is currently between providers and was running out of his insulin so he started rationing it. At presentation he had a blood glucose of 593, bicarbonate 8 anion gap 30. Creatinine 1.5 BUN 23. He was admitted to the ICU and placed on an insulin drip per DKA protocol. Over about 18 hours of treatment patient's clinical status improved, anion gap was closed and blood sugar was improved. Consequently the patient was discharged in stable condition. His Lantus and Humalog where refilled and he was given 3 extra refills. This has been sent to the pharmacy. He is to follow-up with his primary care physician. mental health coordinator is working on getting him a referral for primary care physician. He was discharged in stable condition. No Smoking: If you smoke, Please STOP! Call for help.
[2022-01-21 11:56] LABS: CALCIUM 8.9 mg/dL (8.5-10.3); CREATININE 1.1 mg/dL (0.6-1.2); POTASSIUM 3.7 mmol/L (3.5-5.0)
[2022-01-21] MEDS ORDERED: INSULIN ASPART 300 UNIT/3 ML PEN SUBQ SCH (12:00)
[2022-01-21 12:05] VITALS: BP 123/79
[2022-01-21] MEDS ORDERED: POTASSIUM CHLORIDE 20 MEQ TABLET PO ONE (14:00)
[2022-01-21 21:34] LABS: ESTIMATED AVERAGE GLUCOSE 295 mg/dL (70-100); HEMOGLOBIN A1c% 11.9 % (4.27-6.07)
== END 2022-01-21 14:31 | disposition home or self-care (01) | DRG 639 ==
LOC: ED 13:14 → ICU 01-21 00:26
PROVIDERS: ADMIT Internal Medicine; ATTEND Internal Medicine
DX: E10.10 Type 1 diabetes mellitus with ketoacidosis without coma (principal); T38.3X6A Underdosing of insulin and oral hypoglycemic [antidiabetic] drugs, initial encounter; J45.909 Unspecified asthma, uncomplicated; F17.200 Nicotine dependence, unspecified, uncomplicated; Z20.822 Contact with and (suspected) exposure to COVID-19; Z79.4 Long term (current) use of insulin; Z91.128 Patient's intentional underdosing of medication regimen for other reason
CPT/HCPCS: 36415; 80048; 80053; 81003; 82009; 82803; 83036; 83605; 83690; 83735; 84100; 84478; 85025; 87150; 87635; 96361; 96374; 99285; 99291; A9270; J1815; 81001; 82947; 87086

== ENCOUNTER 2022-09-07 19:41 | Emergency (ER) | payer MEDICAID ==
[2022-09-07 19:56] VITALS: BP 118/73
[2022-09-07] MEDS ORDERED: INSULIN GLARGINE-YFGN 300 UNIT/3 ML PEN SUBQ STA (20:11)
--- NOTE | 2022-09-07 20:14 | ED Physician Documentation ---
History of Present Illness - Stated complaint Stated Complaint: MED REFILL - Chief complaint Chief Complaint: General - History obtained from History obtained from: Patient, Family - Additonal information Additional information: 21-year-old gentleman with longstanding type 1 diabetes presents with his mom. They have been having a lot of trouble refilling his Lantus pens because they require preauthorization, and there have been multiple delays between pharmacies and doctors offices. Regardless he has been out for a few days and is having high blood sugars in the high 270s. He feels queasy but is eating and drinking okay. He checked urinary ketones and they were trace at home. PD PAST MEDICAL HISTORY - Past Medical History Cardiovascular: None Respiratory: Asthma Endocrine/Autoimmune: Type 1 diabetes (2 prior episodes of DKA, none in the past 2 years.) GI: None : None HEENT: None Psych: None Musculoskeletal: None Derm: None - Past Surgical History Past Surgical History: No - Present Medications Home Medications: Ambulatory Orders Medication Instructions Recorded Confirmed Insulin Glargine [Lantus] 25 units SUBQ QPM 08/18/16 11/26/21 Insulin Lispro [Humalog] 25 units SUBQ QPM 08/18/16 11/26/21 Insulin Glargine [Lantus Solostar] 21 unit SQ DAILY #1 pe 01/20/22 Insulin Lispro [Humalog Kwikpen 15 unit SUBQ BID #1 each 01/20/22 U-100] - Allergies Allergies/Adverse Reactions: Allergies Allergy/AdvReac Type Severity Reaction Status Date / Time prednisone Allergy Respiratory Verified 11/26/21 07:33 - Social History Does the pt smoke?: No Smoking Status: Current every day smoker Does the pt drink ETOH?: Yes Does the pt have substance abuse?: No - Immunizations Immunizations are current?: Yes - POLST Patient has POLST: No PD ED PE NORMAL - Vitals Vital signs reviewed: Yes - General General: Alert and oriented X 3, No acute distress - Abdomen Abdomen: Normal bowel sounds, Soft, Non tender - Derm Derm: Normal color, Warm and dry - Neuro Neuro: Alert and oriented X 3, Normal speech Results - Vitals Vitals: Vital Signs - 24 hr 09/07/22 19:50 Temperature 36.4 C L Heart Rate 94 Respiratory 15 Rate Blood Pressure 118/73 O2 Saturation 100 Oxygen O2 Source Room air PD Medical Decision Making - ED course ED course: 21-year-old gentleman who is out of Lantus due to an insurance issue presents at the behest of his [employer] worker for a shot of his usual Lantus. We discussed potentially screening labs for DKA which he declined. Departure - Departure Disposition: Home, Self Care Clinical Impression: Uncontrolled diabetes mellitus Qualifiers: Diabetes mellitus type: type 1 Glycemic state: with hyperglycemia Qualified Code(s): E10.65 - Type 1 diabetes mellitus with hyperglycemia Condition: Stable Record reviewed to determine appropriate education?: Yes Instructions: ED Hyperglycemia Diabetic Comments: Try to get your Lantus filled tomorrow. Return for new or worsening symptoms.
== END 2022-09-07 20:30 | disposition home or self-care (01) ==
LOC: ED 19:41
DX: E10.65 Type 1 diabetes mellitus with hyperglycemia (principal); T38.3X6A Underdosing of insulin and oral hypoglycemic [antidiabetic] drugs, initial encounter; Z91.138 Patient's unintentional underdosing of medication regimen for other reason; Z79.4 Long term (current) use of insulin; F17.200 Nicotine dependence, unspecified, uncomplicated
CPT/HCPCS: 99281; 99284; J1815

== ENCOUNTER 2022-10-17 01:59 | Emergency (ER) | payer MEDICAID ==
[2022-10-17] MEDS ORDERED: DEXTROSE 50% ABBOJECT 25 GM/50 ML SYRINGE ONE ×2 (02:04→02:20)
[2022-10-17] MEDS ORDERED: DEXTROSE 50% ABBOJECT 25 GM/50 ML SYRINGE IVP STA ×2 (02:10→02:32)
[2022-10-17] MEDS ORDERED: NALOXONE 0.4 MG/ML VIAL ONE (02:23)
--- NOTE | 2022-10-17 02:25 | ED Physician Documentation ---
PD HPI ALTERED MENTAL STATUS - Stated complaint Stated Complaint: UNRESPONSIVE - History obtained from History obtained from: Friend - Additional information Additional information: HPI from patient's friends. Patient is driven to ED by friends. Patient is unconscious and responding only minimally to painful stimulus on arrival. Friends report that they were going to a local drive-through restaurant for food and in anticipation of being about to eat, patient checked his blood sugar and result was 238; he thus injected 16 units regular insulin (he is type I DM). Upon arriving at the drive-through, the line was longer than anticipated and, while waiting for their food, patient began to exhibit slurred speech and disorientation. They thus drove patient to the ED and, by the time of ED arrival, patient is nearly unconscious and requ ires several ED staff to get him from the car into a wheelchair to bring him into the ED. Review of Systems Unable to obtain: Unresponsive PD PAST MEDICAL HISTORY - Past Medical History Cardiovascular: None Respiratory: Asthma Endocrine/Autoimmune: Type 1 diabetes (2 prior episodes of DKA, none in the past 2 years.) GI: None : None HEENT: None Psych: None Musculoskeletal: None Derm: None - Past Surgical History Past Surgical History: No - Present Medications Home Medications: Ambulatory Orders Medication Instructions Recorded Confirmed Insulin Glargine [Lantus] 25 units SUBQ QPM 08/18/16 10/17/22 Insulin Lispro [Humalog] 25 units SUBQ QPM 08/18/16 10/17/22 Insulin Glargine [Lantus Solostar] 21 unit SQ DAILY #1 pe 01/20/22 10/17/22 Insulin Lispro [Humalog Kwikpen 15 unit SUBQ BID #1 each 01/20/22 10/17/22 U-100] - Allergies Allergies/Adverse Reactions: Allergies Allergy/AdvReac Type Severity Reaction Status Date / Time prednisone Allergy Respiratory Verified 10/17/22 02:27 - Social History Does the pt smoke?: No Smoking Status: Current every day smoker Does the pt drink ETOH?: Yes Does the pt have substance abuse?: No - Immunizations Immunizations are current?: Yes - POLST Patient has POLST: No PD ED PE NORMAL - Vitals Vital signs reviewed: Yes - General General: Well developed/nourished, Other (unconscious, drooling, responds minimally and briefly to deep painful stimulus only. sonorous respirations) - HEENT HEENT: Other (pupils are midsize, equal, sluggishly reactive to light. no intentional gaze) - Cardiac Cardiac: RRR, No murmur - Respiratory Respiratory: No respiratory distress, Clear bilaterally - Abdomen Abdomen: Non distended - Derm Derm: Normal color PD ED PE EXPANDED - GCS Eye Opening: To Pain Motor: Withdraws to Pain Verbal: None Total: 7 Results - Vitals Vitals: Oxygen O2 Source Room air - Labs Labs: Laboratory Tests 10/17/22 10/17/22 10/17/22 02:15 02:30 03:15 POC Whole Bld Glucose < 10 L* 107 H 71 10/17/22 10/17/22 10/17/22 04:38 05:27 06:37 POC Whole Bld Glucose 87 173 H 191 H PD Medical Decision Making - ED course Complexity details: reviewed results, re-evaluated patient, considered differential, d/w patient ED course: On arrival, patient is unconscious, responds briefly and minimally to painful stimulus only. FSBS glucometer reads "low". Despite sonorous respirations, he is maintaining his airway. While there are low pulse ox readings noted on monitor and recorded in ED RN notes, I do not see any such readings that correlate with a reliable plethysmography pattern. There was some delay in obtaining IV access but ED RN was able to obtain IV in RUE that did not draw but flushed well and thus I directed ED RN to administer one ampule (50 cc) of D50. There was no visual nor palpable evidence of infiltration. Patient did not respond to this intervention (no improvement in mental status and repeat FSBS again reads "low"). LUE IV was then established, similarly unable to draw but flushing well and another ampule of D50 was administered through this IV. Patient did respond to this intervention: within a few minutes, patient's mental status rapidly improved and repeat FSBS is 107. Upon return to his baseline mental status, AAOX3, he is conversant, in NAD, and asymptomatic. He confirms the information provided by his friends regarding HPI. Blood tests were ordered but, due to inability to draw from the IV access obtained, these tests were eventually cancelled; there is no indication, in retrospect, for blood tests (aside from monitoring blood sugar), as HPI provides definitive explanation for que's hypoglycemic event for this patient. He is observed for over four hours in ED, and patient ate the fast food his friends had in the car once he responded to the IV D50. His subsequent blood sugars (FSBS) were 71, 87, 173, 191. He remained AAOx3 for remainder of ED stay. Shortly after normalization of his blood sugar and return to baseline mental status, he began c/o RUE pain and swelling. I note mild/moderate swelling of the upper arm, from elbow to mid-bicep area anteriorly, from the elbow to the distal tricep area posteriorly, and adjacent and immediately distal to the elbow as well. There is TTP of these areas but no areas of firmness. He denies numbness/paresthesias, denies weakness. He is able to move fingers , wrist and has brisk capillary refill in fingertips as well as strong radial pulse. I reexamined the RUE several times throughout remainder of his stay. Compartment syndrome was considered, although this would seem unlikely given involvement of more than one anatomic compartment. I spoke with Dr. Gupta; he recommends observation in ED with anticipation that the swelling will likely improve without needing specific intervention. Given that the concern is infiltration of D50, hyaluronidase was injected around the area of concern. On several repeat reevaluations, patient reported feeling improvement in swelling and pain, and his RUE remained NVI without evidence of compartment syndrome. Prior to d/c, he is asleep but easily awakens to voice. He expresses that he is comfortable with d/c home. I discussed with him return precautions, focussing on signs/symptoms of compartment syndrome. Departure - Departure Disposition: 01 Home, Self Care Clinical Impression: Hypoglycemia Condition: Good Instructions: ED Diabetes Hypoglycemia Insulin React, ED Compartment Syndrome At Risk For Comments: When you first arrived to the emergency department, you were unconscious due to an undetectably low blood sugar on our fingerstick. You were given intravenous dextrose and this rapidly improved your blood sugar as well as your level of consciousness. You were observed in the emergency department for a few hours to monitor the blood sugar, and on repeat fingersticks, your blood sugars remained in a normal to slightly elevated range. Another concern is the swelling and pain of your right arm. I suspect that the fluid and dextrose that was injected into the first IV which was placed into your right arm might have leaked outside of the vein and into the surrounding tissues. After a few hours of observation emergency department, there is no evidence of worsening swelling and no evidence of compression on the circulation or the nerves of the arm. I expect the swelling will gradually improve over the next 12 to 24 hours. If the pain and swelling worsens, it is important that you return to the emergency department. Other concerning signs/symptoms would be decreased sensation of the right arm, discoloration of the forearm and the hand (such as turning pale or blue). Discharge Date/Time: 10/17/22 06:46
[2022-10-17] MEDS ORDERED: HYALURONIDASE HUMAN RECOMB 150 UNIT/ML VIAL ONE ×2 (04:06→04:10)
[2022-10-17] MEDS ORDERED: HYALURONIDASE HUMAN RECOMB 150 UNIT/ML VIAL SUBQ STA (04:27)
[2022-10-17 06:33] VITALS: BP 111/72
== END 2022-10-17 06:46 | disposition home or self-care (01) ==
LOC: ED 01:59
DX: E10.649 Type 1 diabetes mellitus with hypoglycemia without coma (principal); F17.200 Nicotine dependence, unspecified, uncomplicated
CPT/HCPCS: 80053; 83690; 85025; 96374; 99284

== ENCOUNTER 2023-09-25 12:33 | Emergency (ER) | payer MEDICAID ==
[2023-09-25 13:15] LABS: BILIRUBIN,URINE NEGATIVE (NEGATIVE); GLUCOSE, URINE (UA) >=1000 mg/dL (NEGATIVE); KETONES,URINE (UA) TRACE mg/dL (NEGATIVE); LEUKOCYTE ESTERASE, URINE NEGATIVE (NEGATIVE); NITRITE,URINE NEGATIVE (NEGATIVE); OCCULT BLOOD,URINE NEGATIVE (NEGATIVE); PROTEIN,URINE NEGATIVE (NEGATIVE); UROBILINOGEN,URINE 0.2 (NORMAL) E.U./dL (NORMAL)
[2023-09-25 13:16] LABS: CLARITY,URINE CLEAR (CLEAR)
[2023-09-25 13:33] LABS: BASOPHILS # (AUTO) 0.1 10^3/uL (0.0-0.1); BASOPHILS % (AUTO) 0.8 %; EOSINOPHILS # (AUTO) 0.2 10^3/uL (0.0-0.7); HCT - HEMATOCRIT 48.2 % (42.0-52.0); HGB - HEMOGLOBIN 16.1 g/dL (14.0-18.0); LYMPHOCYTES # (AUTO) 2.1 10^3/uL (1.5-3.5); LYMPHOCYTES % (AUTO) 28.3 %; MEAN CORPUSCULAR HGB CONC 33.4 g/dL (32.0-36.0); MEAN CORPUSCULAR VOLUME 86.8 fL (80.0-94.0); MEAN PLATELET VOLUME 10.3 fL (7.4-11.4); MONOCYTES # (AUTO) 0.5 10^3/uL (0.0-1.0); MONOCYTES % (AUTO) 7.1 %; NEUTROPHILS # (AUTO) 4.5 10^3/uL (1.5-6.6); NEUTROPHILS % (AUTO) 60.5 %; PLT - PLATELET COUNT 244 10^3/uL (130-450); RED BLOOD COUNT 5.55 10^6/uL (4.70-6.10); RED CELL DISTRIBUTION WIDTH 12.5 % (12.0-15.0); WHITE BLOOD COUNT 7.4 x10^3/uL (4.8-10.8)
[2023-09-25 13:46] LABS: ALBUMIN 4.7 g/dL (3.2-5.5); ALBUMIN/GLOBULIN RATIO 1.5 (1.0-2.2); BILIRUBIN,TOTAL 0.9 mg/dL (0.2-1.0); CALCIUM 10.4 mg/dL (8.5-10.3); CREATININE 1.1 mg/dL (0.6-1.3); POTASSIUM 4.9 mmol/L (3.5-4.5); TOTAL PROTEIN 7.8 g/dL (6.4-8.9)
--- NOTE | 2023-09-25 13:59 | ED Physician Documentation ---
History of Present Illness - Stated complaint Stated Complaint: VOMITING,DEHYDRATION - Chief complaint Chief Complaint: General - Additonal information Additional information: 22-year-old male brittle type I diabetic presents emergency department for concerns of hyperglycemia. Patient says that he is normally on 20 to 25 units of Lantus daily but he has been unable to pickle cutter his Lantus now for about the last 5 to 7 days. He normally has this prescription filled at [facility] in [place] but they continue to not have his Lantus. He is now having some mild nausea no vomiting. mild sob PD PAST MEDICAL HISTORY - Past Medical History Past Medical History: Yes Cardiovascular: None Respiratory: Asthma Neuro: None Endocrine/Autoimmune: Type 1 diabetes GI: None : None HEENT: None Psych: None Musculoskeletal: None Derm: None - Past Surgical History Past Surgical History: No - Present Medications Home Medications: Ambulatory Orders Medication Instructions Recorded Confirmed Insulin Glargine [Lantus Solostar] 21 unit SQ DAILY #1 pe 01/20/22 09/25/23 Insulin Lispro [Humalog Kwikpen 15 unit SUBQ BID #1 each 01/20/22 09/25/23 U-100] Insulin Glargine [Lantus Solostar] 20 unit SUBQ DAILY #100 ea 09/25/23 - Allergies Allergies/Adverse Reactions: Allergies Allergy/AdvReac Type Severity Reaction Status Date / Time prednisone Allergy Respiratory Verified 09/25/23 12:48 - Social History Does the pt smoke?: No Smoking Status: Never smoker Does the pt drink ETOH?: Yes Does the pt have substance abuse?: No Substance Use and Type: Marijuana - Immunizations Immunizations are current?: Yes - POLST Patient has POLST: No PD ED PE NORMAL - Vitals Vital signs reviewed: Yes - General General: Alert and oriented X 3, No acute distress, Well developed/nourished - HEENT HEENT: Atraumatic, PERRL - Neck Neck: Supple, no meningeal sign - Cardiac Cardiac: RRR, No murmur, No gallop, Strong equal pulses - Respiratory Respiratory: No respiratory distress, Clear bilaterally - Abdomen Abdomen: Normal bowel sounds, Soft, Non tender - Back Back: No CVA TTP - Derm Derm: Normal color, No rash - Extremities Extremities: No deformity, No edema Results - Vitals Vitals: Vital Signs - 24 hr 09/25/23 09/25/23 09/25/23 12:48 14:26 15:33 Temperature 36.9 C Heart Rate 101 H 90 62 Respiratory 16 18 20 Rate Blood Pressure 123/70 116/77 105/96 H O2 Saturation 98 100 100 Oxygen O2 Source Room air - EKG (time done) 1457 EKG releavant findings:: EKG personally interpreted by author of this note. Relevant findings are: Rate: Rate (enter#) (81) Rhythm: NSR [place]: Normal Intervals: Normal [place] QRS: LVH Ischemia: Other (probably early repolarization pattern) Computer interpretation: Agree with computer - Labs Labs: Laboratory Tests 09/25/23 09/25/23 09/25/23 13:07 13:29 13:29 WBC 7.4 RBC 5.55 Hgb 16.1 Hct 48.2 MCV 86.8 MCH 29.0 MCHC 33.4 RDW 12.5 Plt Count 244 MPV 10.3 Neut # (Auto) 4.5 Lymph # (Auto) 2.1 [place] # (Auto) 0.5 Eos # (Auto) 0.2 Baso # (Auto) 0.1 Absolute Nucleated RBC 0.00 Nucleated RBC % 0.0 VBG pH VBG pCO2 VBG pO2 VBG HCO3 VBG Total CO2 VBG O2 Saturation VBG Base Excess Sodium 132 L Potassium 4.9 H Chloride 96 L Carbon Dioxide 24 Anion Gap 12.0 BUN 15 Creatinine 1.1 Estimated GFR (MDRD) 101 Glucose 429 H POC Whole Bld Glucose Calcium 10.4 H Total Bilirubin 0.9 AST 13 ALT 12 Alkaline Phosphatase 79 Total Protein 7.8 Albumin 4.7 Globulin 3.1 Albumin/Globulin Ratio 1.5 Lipase 31 Urine Color YELLOW Urine Clarity CLEAR Urine pH 6.0 Ur Specific [place] <=1.005 Urine Protein NEGATIVE Urine Glucose (UA) >=1000 H Urine Ketones TRACE Urine Occult Blood NEGATIVE Urine Nitrite NEGATIVE Urine Bilirubin NEGATIVE Urine Urobilinogen 0.2 (NORMAL) Ur Leukocyte Esterase NEGATIVE Ur Microscopic Review NOT INDICATED Urine Culture Comments NOT INDICATED Serum Ketones 09/25/23 09/25/23 09/25/23 14:19 14:19 15:07 WBC RBC Hgb Hct MCV MCH MCHC RDW Plt Count MPV Neut # (Auto) Lymph # (Auto) [place] # (Auto) Eos # (Auto) Baso # (Auto) Absolute Nucleated RBC Nucleated RBC % VBG pH 7.412 H VBG pCO2 37.7 L VBG pO2 33.8 VBG HCO3 23.5 VBG Total CO2 24.6 VBG O2 Saturation 70.6 VBG Base Excess -0.7 Sodium Potassium Chloride Carbon Dioxide Anion Gap BUN Creatinine Estimated GFR (MDRD) Glucose POC Whole Bld Glucose 129 H Calcium Total Bilirubin AST ALT Alkaline Phosphatase Total Protein Albumin Globulin Albumin/Globulin Ratio Lipase Urine Color Urine Clarity Urine pH Ur Specific [place] Urine Protein Urine Glucose (UA) Urine Ketones Urine Occult Blood Urine Nitrite Urine Bilirubin Urine Urobilinogen Ur Leukocyte Esterase Ur Microscopic Review Urine Culture Comments Serum Ketones NEGATIVE PD Medical Decision Making - ED course ED course: 22-year-old male presents emergency department for hyperglycemia. Urinalysis reveals a trace ketones but serum ketones is negative. Blood sugar was found to be 429 on original blood draw slightly elevated calcium at 10.4 and slightly hyponatremic at 132, hyperkalemic at 4.9. I do not believe the patient is experiencing DKA at this time with these labs. He was given 1 L of lactated ringer here in the emergency department and 10 units of IV regular insulin and his blood sugar responded well coming down to 129. I reached out to [facility] in [facility] to make sure that they Have Lantus and they both do. A prescription was sent to [facility] and patient was told to go pickle cutter this prescription immediately. Patient told return precautions and told to follow-up with his can maker for possible insulin pump. Departure - Departure Disposition: 01 Home, Self Care Clinical Impression: Type 1 diabetes mellitus with hyperglycemia, Hyperkalemia Instructions: Diabetes Type 1 Get Active, Diabetes Type 1 Prescriptions: Insulin Glargine [Lantus Solostar] 20 unit SUBQ DAILY #100 ea Comments: You do not appear to be in DKA at this point in time we have given you 10 units of regular insulin as well as a liter of IV fluids here in the emergency department it is very important that you do have you can to get your Lantus refilled. I sent a refill to [facility] in [place] and I have already called and confirmed that they do have the KwikPen. Please pick this up first thing today and make sure that you are giving yourself your Lantus daily as prescribed which you said is 20 units daily. Please come back to the emergency department for have any signs symptoms of DKA, chest pain, nausea vomiting diarrhea or any other concerning symptoms. I suggest following up with either your can maker or your primary care provider or whoever orders your Lantus and have them send all refills now to [facility] in [place] Forms: PCP List Discharge Date/Time: 09/25/23 15:33
[2023-09-25] MEDS: LACTATED RINGERS 1,000 ML IV STA (14:07)
[2023-09-25 14:25] LABS: VBG HCO3 23.5 mmol/L (23-28); VBG PCO2 37.7 mmHg (41-51); VBG PH 7.412 (7.31-7.41); VBG PO2 33.8 mmHg (25-47)
[2023-09-25 14:26] LABS: VBG BASE EXCESS -0.7 mmol/L (-2 - +2); VBG OXYGEN SATURATION 70.6 % (60-80); VBG TOTAL CO2 24.6 mmol/L (24-29)
[2023-09-25] MEDS: INSULIN REGULAR HUMAN 300 UNIT/3 ML VIAL IVP STA (14:32)
[2023-09-25] MEDS: ONDANSETRON 4 MG/2 ML VIAL IVP STA (14:32)
[2023-09-25 14:35] VITALS: O2SAT 100
[2023-09-25 15:42] VITALS: BP 105/96
== END 2023-09-25 15:33 | disposition home or self-care (01) ==
LOC: ED 12:33
DX: E10.65 Type 1 diabetes mellitus with hyperglycemia (principal); Z79.4 Long term (current) use of insulin; E87.5 Hyperkalemia
CPT/HCPCS: 36415; 80053; 81003; 82009; 82803; 83690; 85025; 93005; 96361; 96374; 99283; 99284; J1815; J7120; 81001; 87086

== ENCOUNTER 2023-12-25 14:11 | Emergency (ER) | payer MEDICAID ==
--- NOTE | 2023-12-25 15:49 | XRAY Report ---
PROCEDURE: Foot 3+V LT INDICATIONS: Trauma to the toes TECHNIQUE: 3 views of the foot were acquired. COMPARISON: None. FINDINGS: Bones: No fractures or dislocations. No suspicious bony lesions. Soft tissues: No tibiotalar joint effusion. Achilles tendon appears normal. IMPRESSION: No acute bony abnormality. Reviewed by: Ammon Chapin MD on 12/25/2023 3:47 PM PDT Approved by: Ammon Chapin MD on 12/25/2023 3:47 PM PDT Station ID: [id number]
--- NOTE | 2023-12-25 18:05 | ED Physician Documentation ---
PD HPI LOWER EXT INJURY - Stated complaint Stated Complaint: LT FOOT PX,SWELLING - Chief complaint Chief Complaint: Ext Problem - Additional information Additional information: 23-year-old male with type 1 diabetes presents emergency department for stubbed left toe with concerns of possible infection. He has pain to the toenail region that radiates up his toe with purulent drainage coming from his toenail. Patient has had history of ingrown toenail surgery on that toe has not had any recent symptoms of ingrown toenail. This happened yesterday and has increased in pain PD PAST MEDICAL HISTORY - Past Medical History Past Medical History: Yes Cardiovascular: None Respiratory: Asthma Neuro: None Endocrine/Autoimmune: Type 1 diabetes GI: None : None HEENT: None Psych: None Musculoskeletal: None Derm: None - Past Surgical History Past Surgical History: No - Present Medications Home Medications: Ambulatory Orders Medication Instructions Recorded Confirmed Insulin Glargine [Lantus Solostar] 21 unit SQ DAILY #1 pe 01/20/22 09/25/23 Insulin Lispro [Humalog Kwikpen 15 unit SUBQ BID #1 each 01/20/22 09/25/23 U-100] Insulin Glargine [Lantus Solostar] 20 unit SUBQ DAILY #100 ea 09/25/23 Doxycycline [Vibramycin] 100 mg PO BID 7 Days #14 tablet 12/25/23 cephALEXin [Keflex] 500 mg PO Q6H 5 Days #28 cap 12/25/23 - Allergies Allergies/Adverse Reactions: Allergies Allergy/AdvReac Type Severity Reaction Status Date / Time gabapentin Allergy Unknown Verified 12/25/23 14:38 prednisone Allergy Respiratory Verified 12/25/23 14:38 - Social History Does the pt smoke?: No Smoking Status: Never smoker Does the pt drink ETOH?: Yes Does the pt have substance abuse?: No - Immunizations Immunizations are current?: Yes - POLST Patient has POLST: No PD ED PE NORMAL - Vitals Vital signs reviewed: Yes - General General: Alert and oriented X 3, No acute distress, Well developed/nourished - Psych Psych: Normal mood, Normal affect - Free text exam Free text exam: Left first toe. Erythema surrounding toenail with purulent drainage coming from the top of the toenail with some bruising to the medial portion of the toenail. Warm to the touch up to the first joint no streaking able to flex and extend toe but is tender with palpation flexion extension. Results - Vitals Vitals: Vital Signs - 24 hr 12/25/23 18:29 Heart Rate 98 Respiratory 15 Rate Blood Pressure 138/78 H O2 Saturation 98 Oxygen O2 Source Room air - Rads (name of study) Left foot x-rays Relevant Findings:: Final report received, EMP independent interpretation of test, Other (No acute bony abnormalities or findings) PD Medical Decision Making - ED course ED course: 23-year-old male presents emergency department for left toe injury. It does appear that the toe is infected x-rays confirm that there is no bony abnormalities or fractures. Given that there is purulent drainage with erythema and is warm to the touch I went ahead and started patient on Keflex and doxycycline given that he has type 1 diabetes. 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 It does appear that you have an infection on your left toenail primary injury. There is no acute fractures or abnormalities. We have started you on antibiotic called Keflex and doxycycline here in the emergency department please follow-up with podiatry for further evaluation of this to see if there is any further recommendations they are advising. Please keep the walking boot on for any ambulation please repeat x- rays in 7 days if pain does not get any better. I have sent a prescription to [facility] for you to cotton picking machine operator first thing tomorrow take as prescribed. Please come back to the ER if after 2 days of taking antibiotics and symptoms have not improved or gotten any worse. Forms: PCP List Discharge Date/Time: 12/25/23 18:31
[2023-12-25] MEDS: oxyCODONE 5 MG TABLET PO STA (18:11)
[2023-12-25] MEDS: cephALEXin 250 MG CAPSULE PO STA (18:12)
[2023-12-25] MEDS: DOXYCYCLINE 100 MG TABLET PO STA (18:12)
[2023-12-25] MEDS: ACETAMINOPHEN 325 MG TABLET PO STA (18:12)
[2023-12-25 18:31] VITALS: BP 138/78; O2SAT 98
== END 2023-12-25 18:31 | disposition home or self-care (01) ==
LOC: ED 14:11
DX: E10.628 Type 1 diabetes mellitus with other skin complications (principal); Z79.4 Long term (current) use of insulin
CPT/HCPCS: 73630; 99283; 99284; A9270

== ENCOUNTER 2024-01-03 16:11 | Emergency (ER) | payer MEDICAID ==
[2024-01-03 18:02] VITALS: BP 124/80; O2SAT 99
--- NOTE | 2024-01-03 18:56 | ED Physician Documentation ---
History of Present Illness - Stated complaint Stated Complaint: L TOE PX - Chief complaint Chief Complaint: Ext Problem - Additonal information Additional information: 23-year-old male here at the emergency department for left first toe pain. Patient says that overall the pain is actually improved patient is concerned about some mild paresthesias at the base of the toe. Able to flex and extend without difficulty taking antibiotics as prescribed she is attempted to get in with podiatry but has been unsuccessful in doing so overall infection appears to be clear no other signs or symptoms of infection or other concerns. PD PAST MEDICAL HISTORY - Past Medical History Cardiovascular: None Respiratory: Asthma Neuro: None Endocrine/Autoimmune: Type 1 diabetes GI: None : None HEENT: None Psych: None Musculoskeletal: None Derm: None - Past Surgical History Past Surgical History: No - Present Medications Home Medications: Ambulatory Orders Medication Instructions Recorded Confirmed Insulin Lispro [Humalog Kwikpen 15 unit SUBQ BID #1 each 01/20/22 01/03/24 U-100] Doxycycline [Vibramycin] 100 mg PO BID 7 Days #14 tablet 12/25/23 01/03/24 cephALEXin [Keflex] 500 mg PO Q6H 5 Days #28 cap 12/25/23 01/03/24 Insulin Glargine [Lantus Solostar] 19 unit SUBQ DAILY 01/03/24 01/03/24 - Allergies Allergies/Adverse Reactions: Allergies Allergy/AdvReac Type Severity Reaction Status Date / Time gabapentin Allergy Unknown Verified 01/03/24 17:20 prednisone Allergy Respiratory Verified 01/03/24 17:20 - Social History Does the pt smoke?: No Smoking Status: Never smoker Does the pt drink ETOH?: Yes Does the pt have substance abuse?: No - Immunizations Immunizations are current?: Yes - POLST Patient has POLST: No PD ED PE NORMAL - Vitals Vital signs reviewed: Yes - General General: Alert and oriented X 3, No acute distress, Well developed/nourished - Derm Derm: Normal color, Warm and dry, No rash - Extremities Extremities: No deformity, Normal ROM s pain, No edema Results - Vitals Vitals: Vital Signs - 24 hr 01/03/24 17:15 Temperature 36.3 C L Heart Rate 87 Respiratory 18 Rate Blood Pressure 124/80 O2 Saturation 99 Oxygen O2 Source Room air PD Medical Decision Making - ED course ED course: 23-year-old male presents emergency department for concerns of new paresthesia to his left first toe. His left first toe infection has completely entirely improved there is no purulent drainage there is no erythema he is able to flex and extend his toe without any difficulty no pain no tenderness with palpation no purulent drainage. I told the patient that he would greatly benefit especially being type I diabetic following up with a machine setter outpatient he says that he will try to call them again tomorrow he still has the contact information. He is relieved to hear that there is no infection to his toe and just wanted to have further evaluation of the paresthesias which I told him would be with podiatry. All questions answered patient is safe for discharge at this time. Departure - Departure Disposition: 01 Home, Self Care Clinical Impression: Paresthesia of foot Instructions: ED Paraesthesias Follow-Up: Rubi Fajardo DPM [Provider Admit Priv/Credential] - Comments: As we discussed it does not appear that you have any signs symptoms of infection of your left toe please follow-up with podiatry as needed outpatient. Forms: PCP List Discharge Date/Time: 01/03/24 19:18
== END 2024-01-03 19:18 | disposition home or self-care (01) ==
LOC: ED 16:11
DX: R20.2 Paresthesia of skin (principal); E10.9 Type 1 diabetes mellitus without complications; Z79.4 Long term (current) use of insulin
CPT/HCPCS: 99282; 99283